=== PATIENT | female | born 1960 | race Caucasian/White ===

== ENCOUNTER 2023-05-28 18:13 | Emergency (ER) | payer BC, MEDICARE, SELFPAY ==
[2023-05-28 18:16] VITALS: BP 184/98
--- NOTE | 2023-05-28 18:35 | ED.GENMED ---
History of Present Illness
General
Chief Complaint: Fainting Sensation
Time Seen by Provider: 05/28/23 18:35
Travel History
Have you had any contact with someone who has COVID-19?: No
Do you have any symptoms of coronavirus? Fever > 100 degrees, chills, cough, shortness of breath, sore throat, loss of taste or smell, muscle aches, or headache?: No
History of Present Illness
History of Present Illness:
HPI: Patient presents with a burning sensation in the chest that radiates to the shoulders. This been going on for the last several days. She has also had similar episodes over the last several years and this was the presenting symptom when she
needed bypass surgery about 6 years ago. She has no shortness of breath. She currently denies any pain. She no longer takes a PPI
EXAM:
GENERAL: Well appearing in no distress, she is hypertensive
HEENT: Moist oral mucosa
CARDIOVASCULAR: No murmurs, normal heart rate and rhythm, No chest wall tenderness
PULMONARY: No respiratory distress, breath sounds are clear and equal
ABDOMEN: Soft with no peritoneal signs, minimal upper abdominal tenderness, elevated BMI
NEUROLOGIC: Excellent strength all extremities, no coordination deficits
PSYCHIATRIC: Appropriate mental status, normal insight and judgement
EXTREMITIES: Nontender, no edema, moves all extremities equally
SKIN: No rash, no lesions
ED COURSE:
6:40 PM: I initially evaluated patient
NUMBER AND COMPLEXITY OF PROBLEMS ADDRESSED AT THE ENCOUNTER
� Chronic conditions affecting care: CAD/CABG, hyperlipidemia
� Acute Exacerbation and/or Progression of Chronic Illness:
� Differential Diagnosis includes: ACS, GERD, chest wall pain, hypertensive urgency
AMOUNT AND/OR COMPLEXITY OF DATA TO BE REVIEWED AND ANALYZED
� I performed an independent evaluation of and my interpretation is:
EKG: Sinus 76, normal axis, no acute ST abnormality, no significant change from 09/17/2021
CT:
X-rays:
Laboratory Studies: White count, hemoglobin are both normal, troponin and chemistries unremarkable
Other:
� Review of other/old records: I reviewed records, the patient had bypass in April 2016 due to left main and three-vessel coronary disease
� Clinical information was obtained by an independent historian: I spoke to the at bedside
� Prescriptions/Medications Considered but not given:
� Further testing considered but not performed:
RISK OF COMPLICATIONS AND/OR MORBIDITY OR MORTALITY OF PATIENT MANAGEMENT
� Social determinants of health affecting care: Lives at home
� Discussion with other providers:
� Escalation of care including admission/observation vs risk of discharge considered: The patient has intermittent episodes of chest discomfort that are nonexertional in nature. She no longer takes a PPI. She describes the
symptoms as burning. Initial EKG is unremarkable. Troponin normal. She says that she has a med spa manager at [facility] associated with [employer] that she can follow-up with. I strongly recommend she follows up with them by calling them
tomorrow. I also suggest that she tries 2-week course of a PPI as she continues to describe the symptoms as a burning sensation. Appears very comfortable on reassessment at 7:45 PM.
Past History
Past History
ED Past Medical History: CAD, HTN and Other (Multiple sclerosis)
ED Past Surgical History: Cardiac
Social History
Tobacco: Non-smoker
Personal:
Living: with family
Phy Exam
Physical Exam
Physical Exam:
See HPI
Course
Orders/Labs/Results
Orders:
Orders
05/28/23 18:18
EKG [Electrocardiogram (*1)] Urgent
Reason for Study: Chest Pain
EKG- Treatment ONCE
05/28/23 18:38
0.9% Sodium Chloride 1000 ml [Nss] 1,000 ml IV BOLUS
05/28/23 18:58
Complete Blood Count/With Diff Urgent
Comprehensive Metabolic Panel Urgent
Magnesium Urgent
Troponin I Urgent
Abnormal Lab Results
05/28/23
18:58
Absolute Monos (auto) 0.8 H 10^3/uL
(0.1-0.6)
Monocytes % 12.1 H %
(1.7-9.3)
Glucose 100 H mg/dl
(70-99)
05/28/23 18:58
05/28/23 18:58
Vital Signs
Initial and Last Documented VS:
Initial Vital Signs
Temp Pulse Resp BP Pulse Ox
98.4 F 78 18 184/98 98
05/28/23 18:16 05/28/23 18:16 05/28/23 18:16 05/28/23 18:16 05/28/23 18:16
Last Documented Vital Signs
Temp Pulse Resp BP Pulse Ox
98.4 F 67 12 150/68 98
05/28/23 18:16 05/28/23 19:15 05/28/23 19:15 05/28/23 18:53 05/28/23 18:16
*Critical Care Note
Total Time (30-74mins, 75-104mins- exclusive of procedures): Not Applicable
ED Attending Note
-
Portions of this chart may have been created with voice recognition software.� Occasional wrong word or��sound alike� substitutions may have occurred due to the inherent limitations of voice recognition software.
Discharge Plan
Departure
Patient Disposition: Home (Routine Discharge)
Date of Disposition: 05/28/23
Time of Disposition: 19:46
Patient with high blood pressure during this ER visit?: Yes
Discharge Problem:
Episodic lightheadedness
Instructions: Chest Pain (DC), Chest Pain NON-DHP [employer] Follow Up, Dizziness
Prescriptions:
No Action
fluoxetine [Prozac] 40 MG capsule
1 cap PO DAILY
levothyroxine 50 MCG tablet
50 mcg PO DAILY AT 0700
furosemide 40 MG tablet
40 mg PO DAILY Qty: 5 0RF
atorvastatin 80 MG tablet
80 mg PO HS Qty: 30 3RF
acetaminophen 325 MG tablet
650 mg PO Q4HPRN PRN (Reason: HEADACHE OR FEVER > 101F) Qty: 0 0RF
clopidogrel 75 MG tablet
75 mg PO DAILY Qty: 30 3RF
aspirin 81 MG tablet,delayed release (DR/EC)
81 mg PO DAILY Qty: 0 0RF
potassium chloride [Klor-Con M20] 20 MEQ tablet,ER particles/crystals
20 meq PO DAILY Qty: 5 0RF
oxycodone 5 MG tablet
5 mg PO Q6HPRN PRN (Reason: severe pain) Qty: 40 0RF
multivitamin with folic acid [Tab-A-Kwesi] 1 TABLET tablet
1 tab PO DAILY Qty: 0 0RF
metoprolol tartrate 25 MG tablet
12.5 mg PO BID Qty: 60 3RF
Referrals:
Tom Bernabe MD [Family Provider] -
Activity Restrictions/Additional Instructions:
Follow-up with your med spa manager�call them tomorrow. Cardiac blood work and EKG are both normal. Consider taking a 2-week course of [id number] omeprazole. For more immediate relief you could use Pepto-Bismol and/or Pepcid.
Interventions
Interventions:
*Risk Screen - Suicide Last Done: 05/28/23 18:16
*General Assessment Last Done: 05/28/23 18:16
*Neglect/Abuse Screening Last Done: 05/28/23 18:16
*ED COVID-19 Vaccine History Last Done: 05/28/23 18:16
ED- Cardiac Assessment Last Done: 05/28/23 19:08
ED- Neurological Assessment Last Done: 05/28/23 19:08
[2023-05-28 18:51] VITALS: BMI 41.7
[2023-05-28 18:53] VITALS: BP 150/68
[2023-05-28] MEDS: NSS 1000 IV (19:01)
[2023-05-28 19:08] LABS: % Basophils 0.5 % (0-2); % Immature Granulocytes 0.2 % (0-0.5); % Lymphocytes 28.9 % (20.5-51.1); % Monocytes 12.1 % (1.7-9.3); % Neutrophils 57.3 % (42.2-75.2); Absolute Eosinophils 0.1 10^3/uL (0-0.7); Absolute Lymphocytes 1.8 10^3/uL (1.2-3.4); Absolute Monocytes 0.8 10^3/uL (0.1-0.6); Absolute Neutrophils 3.6 10^3/uL (1.4-6.5); Hematocrit 37.9 % (37.0-47.0); Hemoglobin 13.2 g/dL (12.0-16.0); Mean Corp Hgb Conc. 34.8 g/dL (33.0-37.0); Mean Corpuscular Hgb 30.6 pg (27.0-31.0); Mean Corpuscular Volume 87.9 fL (81.0-99.0); Mean Platelet Volume 9.8 fL (7.4-10.4); Nucleated Red Blood Cells % 0 %; Platelet Count 263 10^3/uL (130-400); Red Blood Cell Count 4.31 10^6/uL (4.20-5.40); Red Cell Dist. Width 13.2 % (11.5-14.5); White Blood Cell Count 6.3 10^3/uL (4.8-10.8)
[2023-05-28 19:27] LABS: ALT (SGPT) 25 U/L (0-35); AST (SGOT) 33 U/L (14-36); Albumin 4.3 g/dl (3.5-5.0); Alkaline Phosphatase 72 U/L (38-126); Blood Urea Nitrogen 16 mg/dl (7-17); Calcium 10.2 mg/dl (8.4-10.2); Carbon Dioxide 25 mmol/L (22-30); Chloride 105 mmol/L (98-107); Estimated Creatinine Clearance 69 ml/min; Glucose 100 mg/dl (70-99); Magnesium 1.9 mg/dl (1.6-2.3); Potassium 4.2 mmol/L (3.5-5.1); Sodium 137 mmol/L (135-145); Total Bilirubin 0.7 mg/dl (0.2-1.3); Total Protein 7.2 g/dl (6.3-8.2); eGFR > 60.00
[2023-05-28 19:31] LABS: Troponin I < 0.012 ng/ml
== END 2023-05-28 20:05 | disposition home or self-care (01) ==
LOC: EMR 18:13
PROVIDERS: EMERGENCY PHYSICIAN Emergency Medicine; FAMILY PHYSICIAN Family Medicine
DX: R42 Dizziness and giddiness (principal); R07.89 Other chest pain; E78.5 Hyperlipidemia, unspecified; I10 Essential (primary) hypertension; I25.10 Atherosclerotic heart disease of native coronary artery without angina pectoris; Z95.1 Presence of aortocoronary bypass graft
CPT/HCPCS: 99284; 96360; 80053; 83735; 84484; 85025; 93005